=== PATIENT | female | born 1940 | race Caucasian/White ===

== ENCOUNTER 2018-12-10 20:42 | Inpatient (IN) ==
[2018-12-10] MEDS ORDERED: LORazepam 2 MG/1 ML VIAL ONE (20:58)
[2018-12-10] MEDS ORDERED: LORazepam 2 MG/1 ML VIAL IV STA ×2 (21:03→21:09)
[2018-12-10 21:40] LABS: Basophils # 0.1 10*3/uL (0.0-0.2); Basophils % 0.9 % (0.0-0.8); Eosinophils # 0.2 10*3/uL (0.0-0.87); Eosinophils % 1.6 % (0.00-10.9); Hematocrit 40.5 VOL% (35.7-47.0); Hemoglobin 12.2 GM/DL (12.0-16.0); Immature Granulocytes % 0.9 %; Immature Granulocytes Absolute 0.11 #; Lymphocytes # 2.2 10*3/uL (1.4-4.0); Lymphocytes % 18.4 % (21.3-54.2); Mean Corpuscular HGB Conc 30.1 GM/DL (32-36); Mean Corpuscular Hemoglobin 25 PG (27-34); Mean Corpuscular Volume 81.7 FL (87-102); Monocytes % 8.2 % (1.7-12.7); Neutrophils # 8.5 10*3/uL (1.4-7.4); Platelet Count 190 T/CUMM (130-400); Red Blood Count 4.96 MC/CUMM (3.8-5.5); Red Cell Distribution Width 15.4 % (9.3-17.3); White Blood Count 12.2 T/CUMM (4-12)
[2018-12-10 21:46] LABS: INR 1.1; PT Patient Result 11.4 SECS; Partial Thromboplastin Time 27.7 SECS (0-40)
[2018-12-10 21:53] LABS: Apearance,Urine CLEAR (Clear); Bilirubin,Urine Negative (Negative); Blood, Urine Moderate mg/dL (Negative); Glucose,Urine (UA) 50 mg/dL (Negative); Ketones,Urine 5 mg/dL (Negative); Nitrite,Urine Negative (Negative); Protein,Urine 30 MG/DL; RBC,Urine <1 /HPF (0-4); Urine Color Straw (Yellow); Urine Urobilinogen < 2.0 EU/DL (0.2-1.0); WBC,Urine <1 /HPF (0-6)
[2018-12-10 22:00] LABS: Alanine Aminotransferase 39 U/L (13-56); Albumin 4.5 G/DL (3.4-5.0); Alkaline Phosphatase 65 U/L (45-117); Aspartate Amino Transferase 40 U/L (0-37); Blood Urea Nitrogen 14 MG/DL (7-18); CKMB % 2.2 %; Calcium 8.4 MG/DL (8.5-10.1); Glucose 154 MG/DL (74-106); Osmolality,Calculated 273.1 MOS/KG (273-304); Potassium 3.8 MMOL/L (3.5-5.1); Sodium 135 MMOL/L (136-145); Total Protein 7.9 G/DL (6.4-8.3); Troponin I < 0.015 NG/ML (0.00-0.045)
[2018-12-10 22:19] LABS: Barbiturates Screen,Urine Negative (Negative); Benzodiazepines Screen,Urine Negative (Negative); Cannabinoid Screen,Urine Negative (Negative); Opiate Screen,Urine Negative (Negative); Phencyclidine Screen,Urine Negative (Negative)
[2018-12-10] MEDS ORDERED: NICOTINE 21 MG/24 HR PATCH TRANSDERM PRN (23:26)
[2018-12-10] MEDS ORDERED: ONDANSETRON 4 MG/2 ML VIAL IV PRN (23:26)
[2018-12-10] MEDS ORDERED: ACETAMINOPHEN 325 MG TABLET PO PRN (23:26)
[2018-12-10] MEDS ORDERED: BISACODYL 5 MG TABLET PO PRN (23:26)
[2018-12-10] MEDS ORDERED: MORPHINE 4 MG/1 ML VIAL IV PRN (23:26)
[2018-12-10] MEDS ORDERED: guaiFENesin/DM ER 600-30 MG TABLET PO PRN (23:26)
[2018-12-10] MEDS ORDERED: diphenhydrAMINE CAP 25 MG CAPSULE PO PRN (23:26)
[2018-12-11] MEDS ORDERED: AZITHROMYCIN INJ 500 MG in SODIUM CHLORIDE 0.9% 250 ML IV SCH (02:30)
[2018-12-11] MEDS: cefTRIAXone 1,000 MG in SYRINGE 1 EACH IV SCH (02:54)
[2018-12-11] MEDS: CLINDAMYCIN INJ 600 MG in PREMIX 1 EACH IV SCH ×3 (02:57→17:54)
[2018-12-11 03:07] LABS: Free T4 (Free Thyroxine) 1.09 NG/DL (0.76-1.46)
[2018-12-11 03:59] LABS: Basophils % 0.3 % (0.0-0.8); Eosinophils % 0.1 % (0.00-10.9); Hematocrit 34.1 VOL% (35.7-47.0); Hemoglobin 10.5 GM/DL (12.0-16.0); Immature Granulocytes % 0.5 %; Immature Granulocytes Absolute 0.05 #; Lymphocytes # 1.2 10*3/uL (1.4-4.0); Lymphocytes % 12.1 % (21.3-54.2); Mean Corpuscular HGB Conc 30.8 GM/DL (32-36); Mean Corpuscular Hemoglobin 24 PG (27-34); Mean Corpuscular Volume 78.9 FL (87-102); Mean Platelet Volume 11.9 FL (9.6-12.0); Monocytes % 10.1 % (1.7-12.7); Neutrophils # 7.9 10*3/uL (1.4-7.4); Neutrophils % 76.9 % (38.7-73.9); Platelet Count 151 T/CUMM (130-400); Red Blood Count 4.32 MC/CUMM (3.8-5.5); Red Cell Distribution Width 15.2 % (9.3-17.3); White Blood Count 10.3 T/CUMM (4-12)
[2018-12-11 04:27] LABS: Alanine Aminotransferase 31 U/L (13-56); Albumin 3.4 G/DL (3.4-5.0); Alkaline Phosphatase 52 U/L (45-117); Aspartate Amino Transferase 33 U/L (0-37); Bilirubin,Total < 0.39 MG/DL (0.2-1.0); Blood Urea Nitrogen 16 MG/DL (7-18); Calcium 8.5 MG/DL (8.5-10.1); Glucose 90 MG/DL (74-106); Potassium 4.2 MMOL/L (3.5-5.1); Sodium 136 MMOL/L (136-145); Total Protein 6.2 G/DL (6.4-8.3)
[2018-12-11] MEDS: PANTOPRAZOLE 40 MG TABLET PO SCH (13:17)
[2018-12-11] MEDS ORDERED: LORazepam 2 MG/1 ML VIAL IV PRN (18:21)
[2018-12-11] MEDS: levETIRAcetam 500 MG TABLET PO SCH (21:52)
[2018-12-12] MEDS: cefTRIAXone 1,000 MG in SYRINGE 1 EACH IV SCH (05:06)
[2018-12-12] MEDS: CLINDAMYCIN INJ 600 MG in PREMIX 1 EACH IV SCH ×2 (05:11→12:29)
[2018-12-12] MEDS: PANTOPRAZOLE 40 MG TABLET PO SCH (08:18)
[2018-12-12] MEDS: levETIRAcetam 500 MG TABLET PO SCH (08:18)
[2018-12-12 16:42] VITALS: BP 182/99
== END 2018-12-12 18:09 | disposition home or self-care (01) | DRG 100 ==
LOC: EDBD → EDUNIT# → N.ED 20:42 → SUATTDRO 23:26 → N.EDINP 23:26 → N.2E 12-11 14:09
PROVIDERS: ADMIT Internal Medicine; ATTEND Internal Medicine

== ENCOUNTER 2022-03-25 16:56 | Observation (INO) ==
[2022-03-25] MEDS ORDERED: ONDANSETRON 4 MG/2 ML VIAL IV STA (17:36)
[2022-03-25] MEDS ORDERED: MORPHINE 2 MG/1 ML SYRINGE IV STA (17:36)
[2022-03-25 17:45] LABS: Basophils # 0.1 10*3/uL (0.0-0.2); Basophils % 1.2 % (0.0-0.8); Eosinophils # 0.6 10*3/uL (0.0-0.87); Eosinophils % 8.6 % (0.00-10.9); Hematocrit 44.8 VOL% (35.7-47.0); Hemoglobin 14.4 GM/DL (12.0-16.0); Immature Granulocytes % 0.3 %; Immature Granulocytes Absolute 0.02 #; Lymphocytes # 1.2 10*3/uL (1.4-4.0); Lymphocytes % 18.6 % (21.3-54.2); Mean Corpuscular HGB Conc 32.1 GM/DL (32-36); Mean Corpuscular Volume 83.6 FL (87-102); Mean Platelet Volume 11.9 FL (9.6-12.0); Monocytes # 0.7 10*3/uL (0.11-0.8); Monocytes % 11.2 % (1.7-12.7); Neutrophils % 60.1 % (38.7-73.9); Platelet Count 173 T/CUMM (130-400); Red Blood Count 5.36 MC/CUMM (3.8-5.5); Red Cell Distribution Width 14.2 % (9.3-17.3); White Blood Count 6.5 T/CUMM (4-12)
[2022-03-25 18:09] LABS: Bilirubin,Total 0.4 MG/DL (0.20-1.00); Calcium 9.8 MG/DL (8.5-10.1); Osmolality,Calculated 281.1 MOS/KG (273-304); Potassium 4.2 MMOL/L (3.5-5.1); Total Protein 7.3 G/DL (6.4-8.2)
[2022-03-25] MEDS ORDERED: ENOXAPARIN 100 MG/ML SYRINGE SUBCUT STA (21:48)
[2022-03-25] MEDS ORDERED: ASPIRIN CHEW 81 MG TABLET PO STA (21:48)
[2022-03-25] MEDS ORDERED: GLUCAGON 1 MG VIAL IM PRN (22:50)
[2022-03-25] MEDS ORDERED: ONDANSETRON 4 MG/2 ML VIAL IV PRN (22:50)
[2022-03-25] MEDS ORDERED: ACETAMINOPHEN 325 MG TABLET PO PRN (22:50)
[2022-03-25] MEDS ORDERED: MORPHINE 2 MG/1 ML SYRINGE SUBCUT PRN (22:53)
[2022-03-25] MEDS ORDERED: METOPROLOL SUCCINATE XL 25 MG TABLET PO PRN (22:55)
[2022-03-25] MEDS ORDERED: DEXTROSE 10% 250 ML BAG IV PRN (23:11)
[2022-03-25] MEDS ORDERED: ROSUVASTATIN 10 MG TABLET PO SCH (23:30)
[2022-03-25] MEDS: levETIRAcetam 250 MG TABLET PO SCH (23:30)
[2022-03-25] MEDS: ENOXAPARIN 60 MG/0.6 ML SYRINGE SUBCUT SCH (23:39)
[2022-03-25] MEDS ORDERED: ALBUTEROL/IPRATROPIUM 3 ML NEB RESP TX PRN (23:47)
[2022-03-26 03:06] LABS: Calcium 9.1 MG/DL (8.5-10.1); Potassium 4.1 MMOL/L (3.5-5.1); Risk Ratio 2.91; Thyroid Stimulating Hormone 5.84 uIU/ml (0.358-3.74); VLDL Cholesterol 18.6 MG/DL
[2022-03-26 04:59] LABS: Basophils # 0.1 10*3/uL (0.0-0.2); Basophils % 1.3 % (0.0-0.8); Eosinophils # 0.5 10*3/uL (0.0-0.87); Hematocrit 39.2 VOL% (35.7-47.0); Hemoglobin 12.4 GM/DL (12.0-16.0); Immature Granulocytes % 0.3 %; Immature Granulocytes Absolute 0.02 #; Lymphocytes # 1.4 10*3/uL (1.4-4.0); Lymphocytes % 23.6 % (21.3-54.2); Mean Corpuscular HGB Conc 31.6 GM/DL (32-36); Mean Corpuscular Volume 85.6 FL (87-102); Mean Platelet Volume 11.8 FL (9.6-12.0); Monocytes # 0.8 10*3/uL (0.11-0.8); Monocytes % 13.8 % (1.7-12.7); Platelet Count 151 T/CUMM (130-400); Red Blood Count 4.58 MC/CUMM (3.8-5.5); Red Cell Distribution Width 14.3 % (9.3-17.3)
[2022-03-26] MEDS: levETIRAcetam 250 MG TABLET PO SCH (08:47)
[2022-03-26] MEDS ORDERED: NICOTINE 14 MG/24 HR PATCH TRANSDERM SCH (09:00)
[2022-03-26] MEDS ORDERED: ASPIRIN CHEW 81 MG TABLET PO SCH (09:00)
[2022-03-26] MEDS ORDERED: REGADENOSON 0.4 MG/5 ML SYRINGE IV ONE (09:49)
[2022-03-26] MEDS: ENOXAPARIN 60 MG/0.6 ML SYRINGE SUBCUT SCH (11:49)
[2022-03-26 14:19] VITALS: BP 145/84
[2022-03-26] MEDS ORDERED: levETIRAcetam 500 MG TABLET PO SCH (21:00)
[2022-03-27] MEDS ORDERED: lisinopriL 5 MG TABLET PO SCH (09:00)
== END 2022-03-26 15:40 | disposition home or self-care (01) ==
LOC: N.EDINP 16:56 → N.ED 16:56 → N.TELES 03-26 00:28
PROVIDERS: ADMIT Internal Medicine Geriatric Medicine; ATTEND Internal Medicine Geriatric Medicine